=== PATIENT | female | born 1985 ===

== ENCOUNTER 2024-09-27 12:47 | Emergency (ER) | payer OTHER ==
[~2024-09-27] VITALS: Ht 170.2 cm; Wt 108.9 kg
[2024-09-27 13:12] LABS: BASOPHILS # (AUTO) 0.1 K/UL (0.0-0.2); BASOPHILS % (AUTO) 0.8 % (0.0-2.0); EOSINOPHILS # (AUTO) 0.2 K/uL (0.0-0.7); EOSINOPHILS % (AUTO) 2.6 % (0.0-7.0); HEMATOCRIT 37.3 % (31.2-41.9); HEMOGLOBIN 12.9 g/dL (10.9-14.3); LYMPHOCYTES # (AUTO) 2.5 K/uL (0.8-4.8); LYMPHOCYTES % (AUTO) 29.1 % (20.5-51.5); MEAN CORPUSCULAR HEMOGLOBIN 31.4 uug (24.7-32.8); MEAN CORPUSCULAR HGB CONC 35 g/dL (32.3-35.6); MEAN CORPUSCULAR VOLUME 90.6 fL (75.5-95.3); MONOCYTES # (AUTO) 0.5 K/uL (0.1-1.30); MONOCYTES % (AUTO) 5.8 % (0.0-11.0); NEUTROPHILS # (AUTO) 5.2 K/uL (1.8-8.9); NEUTROPHILS % (AUTO) 61.7 % (38.5-71.5); PLATELET COUNT (AUTO) 279 K/uL (179-408); RED BLOOD CELL COUNT(AUTO) 4.12 MIL/uL (3.63-4.92); RED CELL DISTRIBUTION WIDTH 12.7 % (12.3-17.7); WHITE BLOOD COUNT (AUTO) 8.5 K/uL (3.8-11.8)
[2024-09-27 13:17] LABS: DIFFERENTIAL COMMENT 1
[2024-09-27] MEDS ORDERED: IOHEXOL 350 100 ML INFUS..BTL ONE ×2 (13:18→16:38)
[2024-09-27] MEDS ORDERED: SWABABLE VALVE TRANSFER SET EA MC ONE ×2 (13:18→16:38)
[2024-09-27] MEDS ORDERED: IV NORMAL SALINE 250 ML IV ONE ×2 (13:18→16:38)
[2024-09-27 13:34] LABS: CALCIUM 9.6 mg/dL (8.5-10.1); CARBON DIOXIDE 23 mmol/L (21-32); CHLORIDE 102 mmol/L (98-107); CREATININE 0.7 mg/dL (0.6-1.3); GLUCOSE 106 mg/dL (74-106); POTASSIUM 3.7 mmol/L (3.5-5.1); SODIUM SERUM 139 mmol/L (136-145); UREA NITROGEN, BLOOD 14 mg/dL (7-18)
[2024-09-27 13:46] LABS: ALANINE AMINOTRANSFERASE 34 U/L (14-59); ALBUMIN 4.2 g/dL (3.4-5.0); ALKALINE PHOSPHATASE 76 U/L (50-136); ASPARTATE AMINOTRANSFERASE 16 U/L (15-37); BILIRUBIN,DIRECT 0.1 mg/dL (0.0-0.2); BILIRUBIN,TOTAL 0.4 mg/dL (0.2-1.0); TOTAL PROTEIN, SERUM 8.5 g/dL (6.4-8.2)
[2024-09-27 15:12] VITALS: O2SAT 98
[2024-09-27] MEDS: IV NORMAL SALINE 1000 ML BAG IV ONE (16:28)
== END 2024-09-27 18:03 | disposition home or self-care (01) ==
LOC: ER 12:47
DX: R20.0 Anesthesia of skin (principal); R06.02 Shortness of breath; R07.89 Other chest pain; R42 Dizziness and giddiness; R10.2 Pelvic and perineal pain; Z86.79 Personal history of other diseases of the circulatory system; Z87.39 Personal history of other diseases of the musculoskeletal system and connective tissue
CPT/HCPCS: 99285; 70450; 96360; 71045; 80076; 80048; 82962; 85025; 85730; 86850; 86900; 86901; 84484 ×2; 84702; 36415; 71275; 70496; 70498; 93005; Q9967 ×2; J7040; A4606; A4663